=== PATIENT | female | born 1980 | race Caucasian/White ===

== ENCOUNTER 2017-03-14 09:50 | Day surgery (SDC) | payer OTHER ==
[~2017-03-14] VITALS: Ht 160 cm; Wt 58.2 kg
[~2017-03-14 09:50] MED LIST: ENDOCET 5-3251 EACH PO; Motrin PO; TOPAMAX50 MG PO; ULTRAM50 MG PO
== END 2017-03-14 12:19 | disposition home or self-care (01) ==
LOC: PAIN 09:50 → SDC 10:30 → PAIN 12:19
DX: M47.22 Other spondylosis with radiculopathy, cervical region (principal); D21.9 Benign neoplasm of connective and other soft tissue, unspecified; K21.9 Gastro-esophageal reflux disease without esophagitis; F17.210 Nicotine dependence, cigarettes, uncomplicated; Z79.891 Long term (current) use of opiate analgesic; Z88.2 Allergy status to sulfonamides
CPT/HCPCS: J1030; J2250; J3010; S0020